=== PATIENT | female | born 1960 | race African-American/Black ===

== ENCOUNTER 2020-08-06 12:50 | Emergency (ER) | payer OTHER ==
[~2020-08-06] VITALS: Ht 157.5 cm; Wt 77.1 kg
[2020-08-06] MEDS ORDERED: PREDNISONE 20 MG TAB PO ONE (13:30)
[2020-08-06] MEDS ORDERED: KETOROLAC TROMETHAMINE 60 MG/2 ML VIAL IM ONE (13:30)
[2020-08-06] MEDS ORDERED: ULTRAM50 MG PO (13:40)
[2020-08-06] MEDS ORDERED: PREDNISONE20 MG PO (13:40)
[2020-08-06] MEDS ORDERED: PREDNISONE 20 MG TAB ONE (13:43)
[2020-08-06] MEDS ORDERED: KETOROLAC TROMETHAMINE 60 MG/2 ML VIAL ONE (13:43)
== END 2020-08-06 13:59 | disposition home or self-care (01) ==
LOC: FSED 13:35
DX: M54.41 Lumbago with sciatica, right side (principal); S33.5XXA Sprain of ligaments of lumbar spine, initial encounter; X50.0XXA Overexertion from strenuous movement or load, initial encounter; Y93.E6 Activity, residential relocation; K21.9 Gastro-esophageal reflux disease without esophagitis; Z87.19 Personal history of other diseases of the digestive system
CPT/HCPCS: 99283; J1885; J7512